=== PATIENT | female | born 1990 | race Two or more races ===

== ENCOUNTER 2025-04-30 10:59 | Emergency (ER) | payer SELFPAY ==
[2025-04-30 11:03] VITALS: BP 155/97; PULSE 93; RESP 18; TEMP 37.2; O2SAT 98; BMI 28.3
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
[2025-04-30 11:15] LABS: Basophils # (Auto) 0.1 Thou/mm3 (0.0-0.2); Basophils % (Auto) 0 % (0-2.5); Eosinophils # (Auto) 0.2 Thou/mm3 (0.0-0.5); Eosinophils % (Auto) 1 % (0-10); Hematocrit 38.8 % (36.0-46.0); Hemoglobin 13.0 g/dL (12.0-16.0); Immature Granulocytes Auto 0.04 Thou/mm3 (0.00-0.00); Lymphocytes # (Auto) 6.6 Thou/mm3 (1.0-4.8); Lymphocytes % (Auto) 45 % (10-50); Mean Corpuscular HGB Conc 33.5 g/dl (31.0-37.0); Mean Corpuscular Hemoglobin 31.0 pg (25.0-35.0); Mean Corpuscular Volume 92 fL (80-100); Monocytes # (Auto) 0.8 Thou/mm3 (0.0-0.8); Monocytes % (Auto) 5 % (0-12); Neutrophils # (Auto) 7.0 Thou/mm3 (1.8-7.7); Neutrophils % (Auto) 48 % (37-80); Nucleated Red Blood Cell # 0.00 Thou/mm3 (0.00-0.00); Nucleated Red Blood Cell % 0 /100 WBC (0); Platelet Count 279 Thou/mm3 (140-440); RDW Standard Deviation 39.7 fL (36.4-46.3); Red Blood Count 4.20 Miln/mm3 (4.00-5.20); White Blood Count 14.7 Thou/mm3 (3.6-11.0)
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
[2025-04-30 12:09] VITALS: BP 110/55; PULSE 68; RESP 19; TEMP 37.1; O2SAT 98
[2025-04-30 12:25] LABS: Alanine Aminotransferase 20 U/L (10-49); Albumin, Serum 4.0 gm/dL (3.5-5.0); Albumin/Globulin Ratio 2.0 (1.2-2.2); Alkaline Phosphatase 49 U/L (46-116); Anion Gap 8 (7-16); Aspartate Amino Transferase 29 U/L (0-34); BUN/Creatinine Ratio 21 Ratio (12-20); Bilirubin,Total 0.3 mg/dL (0.3-1.2); Blood Urea Nitrogen 19 mg/dL (9-23); Calcium 8.4 mg/dL (8.3-10.6); Calcium (Corrected) 8.4 mg/dL (8.5-10.1); Carbon Dioxide 25.5 mMol/L (20.0-31.0); Chloride 107 mMol/L (98-107); Creatinine (Component) 0.9 mg/dL (0.6-1.3); Estimated Creatinine Clearance 83.3 mL/min (>60); Globulin 2.0 gm/dL (2.3-3.5); Glucose 117 mg/dL (74-106); Osmolality,Calculated 282 (275-295); Potassium 3.4 mMol/L (3.4-5.1); Sodium 140 mMol/L (136-145); Total Protein 6.0 gm/dL (5.7-8.2); eGFR > 60 See Note
[2025-04-30 12:30] LABS: HCG,Qualitative Serum Negative
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
[2025-04-30 14:03] VITALS: BP 102/63; PULSE 52; RESP 18; O2SAT 100
--- NOTE | 2025-04-30 14:08 | EKG_ITS ---
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
[2025-04-30] MEDS: ACETAMINOPHEN IVPB 1,000 MG/100 ML VIAL 250 MG IV (14:16)
[2025-04-30 15:29] VITALS: BP 145/77; PULSE 73; RESP 18; O2SAT 99
== END 2025-04-30 15:37 | disposition home or self-care (01) ==
PROVIDERS: Emergency Provider Family Medicine; PCP Family Medicine
DX: S31.119A Laceration without foreign body of abdominal wall, unspecified quadrant without penetration into peritoneal cavity, initial encounter (principal); Y04.0XXA Assault by unarmed brawl or fight, initial encounter
CPT/HCPCS: 36415; 70450; 71260; 72125; 74177; 80053; 84703; 85025; 86850; 86900; 86901; 93005; 96365; 99283; A4649; J0131; Q9967